=== PATIENT | female | born 1950 | race Caucasian/White ===

== ENCOUNTER → 2022-10-17 | Outpatient (CLI) | payer BC ==
[2022-10-17 11:27] LABS: BASOPHILS ABSOLUTE AUTO 0.04 K/mm3 (0.00-0.23); BASOPHILS PERCENT AUTO 1 % (0-2); EOSINOPHILS ABSOLUTE AUTO 0.15 K/mm3 (0.00-0.68); EOSINOPHILS PERCENT AUTO 3 % (0-6); Hematocrit 35.4 % (33.0-51.0); Hemoglobin 12.2 g/dL (11.5-16.0); IMMATURE GRAN ABSOLUTE AUTO 0.01 K/mm3 (0.00-0.10); IMMATURE GRAN PERCENT AUTO 0 % (0-1); LYMPHOCYTES ABSOLUTE AUTO 1.61 K/mm3 (0.84-5.20); LYMPHOCYTES PERCENT AUTO 29 % (21-46); MONOCYTES ABSOLUTE AUTO 0.51 K/mm3 (0.16-1.47); MONOCYTES PERCENT AUTO 9 % (4-13); Mean Corpuscular HGB 32.2 pg (26.0-34.0); Mean Corpuscular HGB Conc 34.5 g/dL (31.5-36.5); Mean Corpuscular Volume 93 fL (80-100); Mean Platelet Volume 9.3 fL (9.1-12.4); NEUTROPHILS ABSOLUTE AUTO 3.15 K/mm3 (1.96-9.15); NEUTROPHILS PERCENT AUTO 58 % (41-73); Platelet Count 258 K/mm3 (150-400); RDW Coefficient Variation 12.4 % (11.7-14.2); RDW Standard Deviation 42.5 fL (35.1-46.3); Red Blood Cell Count 3.79 M/mm3 (3.80-5.20); White Blood Cell Count 5.47 K/mm3 (4.00-11.30)
[2022-10-17 11:36] LABS: Albumin, Blood 4.1 g/dL (3.4-5.0); Albumin/Globulin Ratio 1.2 (0.8-1.8); Bilirubin, Total 0.3 mg/dL (0.1-1.0); Calcium, Blood 9.3 mg/dL (8.5-10.1); Creatinine, Blood 0.92 mg/dL (0.40-1.00); Globulin, Blood 3.5 g/dL (2.2-4.0); Potassium, Blood 4.8 mmol/L (3.5-5.5); Total Protein, Blood 7.6 g/dL (6.4-8.2)
== END | disposition home or self-care (01) ==
LOC: LAB SHORT 11:21 → LAB 11:21
PROVIDERS: Emergency Medicine
DX: Z09 Encounter for follow-up examination after completed treatment for conditions other than malignant neoplasm (principal); Z86.711 Personal history of pulmonary embolism
CPT/HCPCS: 80053; 85025; 85379

== ENCOUNTER → 2023-07-17 | Outpatient (CLI) | payer BC ==
[2023-07-18 11:21] LABS: Stool Occult Bld Immuno 1 Positive (NEGATIVE)
== END ==
LOC: LAB EV 09:30 → LAB SHORT 09:30
PROVIDERS: Family Medicine
DX: Z12.11 Encounter for screening for malignant neoplasm of colon (principal)
CPT/HCPCS: G0328

== ENCOUNTER 2023-10-16 11:06 | Day surgery (SDC) | payer BC ==
[~2023-10-16] VITALS: Ht 154.9 cm; Wt 57.9 kg
[~2023-10-16 11:06] MED LIST: Lactated Ringer's 1,000 ML IV ONE; Lidocaine HCl 2% 10 ML SDA ONE
[2023-10-16] MEDS ORDERED: Prinivil10 MG PO (11:27)
[2023-10-16] MEDS ORDERED: NAPROXEN500 MG PO (11:27)
[2023-10-16] MEDS ORDERED: HYDROCODONE-AC1 EA19 PO (11:27)
[2023-10-16] MEDS ORDERED: CONEST.625 PO (11:27)
[2023-10-16] MEDS ORDERED: ATORVASTATIN CA20 MG PO (11:27)
[2023-10-16] MEDS ORDERED: FLUTICASONE PRO12 GM (11:28)
[2023-10-16] MEDS ORDERED: VARENICLINE TART1 M2 PO (11:29)
[2023-10-16] MEDS ORDERED: ZANAFLEX413 PO (11:29)
[2023-10-16] MEDS ORDERED: Lactated Ringer's 1,000 ML IV ONE (11:45)
--- NOTE | 2023-10-16 11:46 | NUR ---
10/16/23 1146 Caitlyn Yates PT IN BED WITH WARM BLANKETS, CALL LIGHT WITHIN REACH. BED IN LOWEST POSTION. RAVINDRA AT BEDSIDE
[2023-10-16] MEDS ORDERED: FentaNYL Citrate 50 MCG/ML 2 ML Injection ONE (11:56)
[2023-10-16] MEDS ORDERED: propofoL 20 ML IV ONE (11:56)
[2023-10-16] MEDS ORDERED: CeFAZolin Sodium 2,000 MG VIAL ONE (12:38)
[2023-10-16] MEDS ORDERED: NS 50 ML IV ONE (12:38)
[2023-10-16 13:09] VITALS: BP 102/56
== END 2023-10-16 13:56 | disposition home or self-care (01) ==
LOC: ORSCSDS 11:06
PROVIDERS: Orthopaedic Surgery
PROC: 0LN80ZZ Release Left Hand Tendon, Open Approach (ICD-10-PCS; principal; 2023-10-16 12:15)
DX: M65.312 Trigger thumb, left thumb (principal); I12.9 Hypertensive chronic kidney disease with stage 1 through stage 4 chronic kidney disease, or unspecified chronic kidney disease; N18.9 Chronic kidney disease, unspecified; E78.00 Pure hypercholesterolemia, unspecified; Z87.891 Personal history of nicotine dependence; Z79.899 Other long term (current) drug therapy
CPT/HCPCS: J0690; J2001; J2704; J3010; J7120

== ENCOUNTER 2024-10-25 07:30 | Day surgery (SDC) | payer BC ==
[~2024-10-25] VITALS: Ht 152.4 cm; Wt 55.9 kg
[~2024-10-25 07:30] MED LIST changes: +ATORVASTATIN CA20 MG PO; +CONEST.625 PO; +CeFAZolin Sodium 2,000 MG VIAL ONE; +FLUTICASONE PRO12 GM; +HYDROCODONE-AC1 EA19 PO; -Lactated Ringer's 1,000 ML IV ONE; -Lidocaine HCl 2% 10 ML SDA ONE; +NAPROXEN500 MG PO; +NS 500 ML IV ONE; +Prinivil10 MG PO; +VARENICLINE TART1 M2 PO; +ZANAFLEX413 PO
[2024-10-25] MEDS ORDERED: PEPCID40 MG PO (07:51)
[2024-10-25] MEDS ORDERED: ASMANEX HFA13 G4 IH (07:51)
[2024-10-25] MEDS ORDERED: ALBU90OI INH (07:51)
[2024-10-25] MEDS ORDERED: Norco 7.5-3251 EACH PO (07:52)
[2024-10-25] MEDS ORDERED: NS 500 ML IV ONE (07:58)
--- NOTE | 2024-10-25 08:10 | NUR ---
10/25/24 0810 Rosario Pham TIME OUT PERFORMED AT BEDSIDE WITH DR WARD AT 0808 IMMEDIATELY PRIOR TO INJECTION OF 9ML OF SOLUTION CONSISTING OF 9ML 1% LIDOCAINE WITH EPI [id number] AND 1ML 8.4% SODIUM BICARBONATE INTO RIGHT HAND . PT TOLERATED PROCEDURE WELL.
[2024-10-25] MEDS ORDERED: Midazolam HCl 1MG / ML 2ML Vial ONE (08:14)
[2024-10-25] MEDS ORDERED: propofoL 20 ML IV ONE (08:14)
[2024-10-25 09:45] VITALS: BP 155/61
== END 2024-10-25 09:10 | disposition home or self-care (01) ==
LOC: ORSCSDS 07:30
PROVIDERS: Orthopaedic Surgery
PROC: 0LN70ZZ Release Right Hand Tendon, Open Approach (ICD-10-PCS; principal; 2024-10-25 09:00)
DX: M65.321 Trigger finger, right index finger (principal); M65.331 Trigger finger, right middle finger; R22.31 Localized swelling, mass and lump, right upper limb; M67.441 Ganglion, right hand; I10 Essential (primary) hypertension; J45.909 Unspecified asthma, uncomplicated; Z87.891 Personal history of nicotine dependence
CPT/HCPCS: 88304; J0690; J2250; J2704; J7040

== ENCOUNTER 2024-12-27 11:29 | Day surgery (SDC) | payer BC ==
[~2024-12-27] VITALS: Ht 152.4 cm; Wt 55.7 kg
[~2024-12-27 11:29] MED LIST changes: +ALBU90OI INH; +ASMANEX HFA13 G4 IH; -CeFAZolin Sodium 2,000 MG VIAL ONE; +Norco 7.5-3251 EACH PO; +PEPCID40 MG PO
[2024-12-27] MEDS ORDERED: NS 100 ML IV ONE (11:38)
[2024-12-27] MEDS ORDERED: CeFAZolin Sodium 2,000 MG VIAL ONE (11:38)
[2024-12-27] MEDS ORDERED: NS 500 ML IV ONE (11:41)
[2024-12-27] MEDS ORDERED: Midazolam HCl 1MG / ML 2ML Vial ONE (12:37)
--- NOTE | 2024-12-27 12:39 | NUR ---
12/27/24 1239 Lesli Garcia PT DENIES ANY NEEDS AT THIS TIME, SPOUSE AT BEDSIDE.
[2024-12-27 14:43] VITALS: BP 158/69
== END 2024-12-27 14:20 | disposition home or self-care (01) ==
LOC: ORSCSDS 11:29
PROVIDERS: Orthopaedic Surgery
PROC: 0LN80ZZ Release Left Hand Tendon, Open Approach (ICD-10-PCS; principal; 2024-12-27 13:30)
DX: M65.332 Trigger finger, left middle finger (principal); M65.322 Trigger finger, left index finger; E78.00 Pure hypercholesterolemia, unspecified; E78.5 Hyperlipidemia, unspecified; I10 Essential (primary) hypertension; J45.909 Unspecified asthma, uncomplicated; K21.9 Gastro-esophageal reflux disease without esophagitis; Z87.891 Personal history of nicotine dependence; Z79.899 Other long term (current) drug therapy
CPT/HCPCS: J0690; J2250; J2704; J7040

== ENCOUNTER 2025-01-28 11:54 | Day surgery (SDC) | payer BC ==
[~2025-01-28] VITALS: Ht 154.9 cm; Wt 54.1 kg
[~2025-01-28 11:54] MED LIST changes: +Lidocaine HCl 2% 10 ML SDA ONE
[2025-01-28] MEDS ORDERED: ASPI81CH PO (12:47)
[2025-01-28] MEDS ORDERED: PROBIOTIC1 EA14 PO (12:49)
[2025-01-28] MEDS ORDERED: Ascorbic Acid500 M2 PO (12:50)
[2025-01-28] MEDS ORDERED: NS 500 ML IV ONE (13:02)
[2025-01-28] MEDS ORDERED: CeFAZolin Sodium 2,000 MG VIAL ONE (14:25)
[2025-01-28] MEDS ORDERED: Bupivacaine 0.5% W/EPI 1:200000 SDV 10ML INJ ONE (14:35)
[2025-01-28 15:00] VITALS: BP 136/78
== END 2025-01-28 15:52 | disposition home or self-care (01) ==
LOC: ORSCSDS 11:54
PROVIDERS: Podiatrist Foot & Ankle Surgery
PROC: 0JBQ0ZX Excision of Right Foot Subcutaneous Tissue and Fascia, Open Approach, Diagnostic (ICD-10-PCS; principal; 2025-01-28 13:30)
DX: G57.61 Lesion of plantar nerve, right lower limb (principal); I10 Essential (primary) hypertension; J44.89 Other specified chronic obstructive pulmonary disease; K21.9 Gastro-esophageal reflux disease without esophagitis; E78.00 Pure hypercholesterolemia, unspecified; Z79.899 Other long term (current) drug therapy; Z87.891 Personal history of nicotine dependence
CPT/HCPCS: 88304; J0690; J2003; J2704; J7040